=== PATIENT | male | born 1955 | race Caucasian/White ===

== ENCOUNTER → 2021-07-24 08:51 | Outpatient (CLI) | payer OTHER | END | disposition home or self-care (01) | LOC: NUCLEAR 08:51 | PROVIDERS: ATTEND Internal Medicine Hematology & Oncology | DX: C61 Malignant neoplasm of prostate (principal); I10 Essential (primary) hypertension; R06.00 Dyspnea, unspecified ==

== ENCOUNTER 2022-06-05 10:46 | Outpatient (CLI) | payer OTHER | END 2022-06-05 10:52 | disposition home or self-care (01) | LOC: LAB 10:46 | PROVIDERS: ATTEND Radiology Diagnostic Radiology | DX: K43.6 Other and unspecified ventral hernia with obstruction, without gangrene (principal) ==

== ENCOUNTER 2022-06-10 08:44 | Outpatient (CLI) | payer OTHER | END 2022-06-10 08:55 | disposition home or self-care (01) | LOC: TOM 08:44 | PROVIDERS: ATTEND Surgery | DX: K43.6 Other and unspecified ventral hernia with obstruction, without gangrene (principal) | CPT/HCPCS: 74177; Q9965 ==